=== PATIENT | male | born 1975 | race Caucasian/White ===

== ENCOUNTER 2021-02-23 00:50 | Day surgery (SDC) | payer OTHER, SELFPAY ==
[2021-02-12 14:10] VITALS: BMI 35.1
[2021-02-23 06:42] VITALS: BP 143/86; PULSE 77; RESP 16; TEMP 36; O2SAT 99; BMI 33.3
[2021-02-23] MEDS: LACTATED RINGERS 1,000 ML 150 ML IV CONT (07:02)
[2021-02-23 07:05] LABS: Glucose Point of Care 163 mg/dl (65-105)
--- NOTE | 2021-02-23 08:07 | P.PNAN_ITS ---
Anes - Initial Pre Proc Eval Procedure: Operation Date: 02/23/21 08:00 Proposed Procedures p Screening Colonoscopy - Danial Salazar MD Date/Time: 02/23/21 08:07 Surgeon: Danial Salazar MD Pre Op Diagnosis: neoplasm screening Patient Data Age: 46 Gender: M Height: 1.78 m Weight: 105.3 kg Last Vital Signs Temp 96.8 F L 02/23/21 06:42 Pulse 77 02/23/21 06:42 Resp 16 02/23/21 06:42 BP 143/86 H 02/23/21 06:42 Pulse Ox 99 02/23/21 06:42 Allergies Allergy/AdvReac Type Severity Reaction Status Date / Time No Known Allergies Allergy Verified 02/23/21 06:49 Home Medications Medication Instructions Recorded Confirmed Type Breo Ellipta 1 puff INHALATION DAILY 02/12/21 02/23/21 History atorvastatin 20 mg PO DAILY 02/12/21 02/23/21 History escitalopram oxalate 10 mg PO DAILY 02/12/21 02/23/21 History gabapentin 300 mg PO TID 02/12/21 02/23/21 History loratadine 10 mg PO DAILY 02/12/21 02/23/21 History metformin 1,000 mg PO BID 02/12/21 02/23/21 History needle (disp) 18 G [BD Regular 02/12/21 02/23/21 History [facility] [place]] Laboratory Tests 02/23/21 06:55 POC Capillary Glucose 163 mg/dl H mg/dl (65-105) Patient hx anesthesia problems: none Family hx anesthesia problems: none Results Review: All pre-operative results and documents have been reviewed as part of the pre-operative evaluation. [facility] Past Medical History Medical History (Updated 02/23/21 @ 08:06 by Epifanio Holley MD) Asthma Diabetes Hyperlipidemia Hypertension Social History Social History Smoking packs per day: 1.5 Smoking cigarettes per day: 30.0 Years smoked: 30 Smoking pack-years: 45.00 Smoking status: Current every day smoker Tobacco type: cigarettes Alcohol intake: current Alcohol use details: very rarely Substance use: never Substance use type: does not use Living arrangements: with family Anes - Eval Final PreProcedure Day of Procedure 02/23/21 08:07 Patient weight: obese Heart: regular rate and rhythm Lungs: clear to auscultation Airway: Mallampati scale class III Neurological: alert and oriented Last oral intake: >/= 8 hours ASA classification: III Emergent: no Anesthetic plan: proceed Anesthesia type and monitoring: general GIVS and standard monitoring Results Review: All pre-operative results and documents have been reviewed as part of the pre-operative evaluation. Informed Consent: The patient's anesthetic plan and its attendant risks and benefits were discussed with the patient/family/POA. Questions were solicited and answers provided to the satisfaction of the patient/family/POA.
--- NOTE | 2021-02-23 08:08 | PM.HPGS ---
History of Present Illness History of Present Illness Consent: Risks, benefits, and alternatives have been discussed and questions answered. Patient agrees to proceed with procedure. Chief complaint: neoplasm screening Narrative: Alex Bajwa is a 46 year old male here for first screening colonoscopy Review of Systems Constitutional: Constitutional: Denies headache(s) and Denies weakness Eyes: Eyes: Denies blurry vision ENT: Reports Normal hearing present, Denies headache(s) and Denies neck pain Cardiovascular: Cardiovascular: Denies chest pain and Denies dyspnea Respiratory: Respiratory: Denies dyspnea Gastrointestinal: Gastrointestinal: Reports no additional gastrointestinal complaints Genitourinary: Genitourinary: Denies dysuria Musculoskeletal: Musculoskeletal: Denies neck pain Integumentary/Breasts: Skin/Breast: Denies dry skin Neurologic: Reports Normal hearing present, Denies headache(s) and Denies weakness Psychiatric: Psychiatric: Denies anxiety Endocrine: Endocrine: Denies change in body appearance Hematologic/Lymphatic: Hematologic/Lymphatic: Denies easy bleeding Allergic/Immunologic: Allergic/Immunologic: Denies urticaria PMFSH Past Medical History Medical History (Updated 02/23/21 @ 08:08 by Danial Salazar MD) Asthma Colon cancer screening Diabetes Hyperlipidemia Hypertension Social History Social History Smoking packs per day: 1.5 Smoking cigarettes per day: 30.0 Years smoked: 30 Smoking pack-years: 45.00 Smoking status: Current every day smoker Tobacco type: cigarettes Alcohol intake: current Alcohol use details: very rarely Substance use: never Substance use type: does not use Living arrangements: with family Meds Home Medications and Allergies Home Medications Medication Instructions Recorded Confirmed Type Breo Ellipta 1 puff INHALATION DAILY 02/12/21 02/23/21 History atorvastatin 20 mg PO DAILY 02/12/21 02/23/21 History escitalopram oxalate 10 mg PO DAILY 02/12/21 02/23/21 History gabapentin 300 mg PO TID 02/12/21 02/23/21 History loratadine 10 mg PO DAILY 02/12/21 02/23/21 History metformin 1,000 mg PO BID 02/12/21 02/23/21 History needle (disp) 18 G [BD Regular 02/12/21 02/23/21 History [facility] [place]] Allergies Allergy/AdvReac Type Severity Reaction Status Date / Time No Known Allergies Allergy Verified 02/23/21 06:49 Vital Signs Vital Signs - 24 hr 02/23/21 06:42 Temperature 96.8 F L Pulse Rate 77 Respiratory Rate 16 Blood Pressure 143/86 H Pulse Oximetry 99 Exam Const: General: comfortable and no acute distress HENMT: General nose exam: Normal nares present Eyes: General: appearance normal, both eyes and all related structures Neck: Neck: no JVD Resp: Auscultation: clear to auscultation bilaterally Cardio: Rate: regular rate Rhythm: regular rhythm GI: Inspection: non-distended GI Palp: Yes Soft to palpation Skin: General skin exam: normal color Neuro: General: gait normal Speech: normal speech Extrem: General: normal to inspection Psych: Mental Status: mental status grossly normal Assessment and Plan Assessment and plan (1) Colon cancer screening: Code(s): Z12.11 - Encounter for screening for malignant neoplasm of colon Status: Acute Assessment and Plan: colonoscopy
[2021-02-23 08:25] VITALS: BP 127/77; PULSE 77; RESP 16; O2SAT 95
[2021-02-23 08:35] VITALS: BP 129/79; PULSE 72; RESP 18; O2SAT 98
[2021-02-23 08:45] VITALS: BP 129/83; PULSE 73; RESP 18; O2SAT 98
== END 2021-02-23 08:56 | disposition home or self-care (01) ==
PROVIDERS: PCP Nurse Practitioner; Visit Provider Internal Medicine Gastroenterology
PROC: 0DJD8ZZ Inspection of Lower Intestinal Tract, Via Natural or Artificial Opening Endoscopic (ICD-10-PCS; CPT 45378; principal; 2021-02-23 08:00)
DX: Z12.11 Encounter for screening for malignant neoplasm of colon (principal); K64.8 Other hemorrhoids; J45.909 Unspecified asthma, uncomplicated; E11.9 Type 2 diabetes mellitus without complications; I10 Essential (primary) hypertension; E78.5 Hyperlipidemia, unspecified; F17.210 Nicotine dependence, cigarettes, uncomplicated; Z79.84 Long term (current) use of oral hypoglycemic drugs; E66.9 Obesity, unspecified; Z68.33 Body mass index [BMI] 33.0-33.9, adult
CPT/HCPCS: 45378; 82948; J2704; J7120

== ENCOUNTER 2021-09-28 06:35 | Outpatient (CLI) | payer OTHER, SELFPAY ==
--- NOTE | ~2021-09-28 | MR_ITS ---
EXAMINATION: MR cervical spine wo con DATE: 09/28/2021 08:02 INDICATION: Cervical radiculopathy. TECHNIQUE: Magnetic resonance imaging (MRI) of the cervical spine was performed without intravenous c ontrast. Sequences included sagittal T2-weighted FSE, sagittal T2-weighted FS FSE, sagittal T1-weight ed FSE, axial MERGE, and axial T2-weighted FSE. COMPARISON: None FINDINGS: There is hypolordosis of cervical spine. Vertebral body heights are normal. There is severe ly decreased disc height at C5-C6 and moderately decreased disc height at C6-C7 with endplate remodel ing. The spinal cord signal intensity is normal. The following disc levels are specifically discussed : C2-C3: The disc does not extend beyond the endplate margin. There is no uncovertebral joint osteoarth ritis. There is no facet joint osteoarthritis. There is no neural foraminal stenosis. There is no lanny tral canal stenosis. C3-C4: There is a central extrusion. There is no uncovertebral joint osteoarthritis. There is mild la teral facet joint osteoarthritis. There is no neural foraminal stenosis. There is no central canal st enosis. C4-C5: The disc does not extend beyond the endplate margin. There is no uncovertebral joint osteoarth ritis. There is mild bilateral facet joint osteoarthritis. There is no neural foraminal stenosis. The re is no central canal stenosis. C5-C6: The disc is bulging. There is severe bilateral uncovertebral joint osteoarthritis. There is mi ld bilateral facet joint osteoarthritis. There is moderate bilateral neural foraminal stenosis. There is mild central canal stenosis with ventral indentation of the spinal cord. C6-C7: The disc is bulging. There is mild right and moderate left uncovertebral joint osteoarthritis. There is mild bilateral facet joint osteoarthritis. There is mild right and moderate left neural for aminal stenosis. There is mild central canal stenosis with ventral indentation of the spinal cord. C7-T1: The disc does not extend beyond the endplate margin. There is no uncovertebral joint osteoarth ritis. There is mild bilateral facet joint osteoarthritis. There is no neural foraminal stenosis. The re is no central canal stenosis. IMPRESSION: 1. Severe cervical spondylosis. Reviewed, dictated and finalized at location A.
--- NOTE | ~2021-09-28 | MR_ITS ---
EXAMINATION: MR lumbar spine wo con DATE: 09/28/2021 08:02 INDICATION: Low back pain. Lumbar radiculopathy. TECHNIQUE: Magnetic resonance imaging (MRI) of the lumbar spine was performed without intravenous con trast. Sequences included sagittal T2-weighted FSE, sagittal T2-weighted FS FSE, sagittal T1-weighted FSE, and axial T2-weighted FSE. COMPARISON: None FINDINGS: Bone alignment is normal. Vertebral body heights and intervertebral disc heights are normal . Epidural lipomatosis is noted. The distal spinal cord signal intensity is normal. The conus medulla ris is at L1-L2. The following disc levels are specifically discussed: L1-L2: The disc does not extend beyond the endplate margin. There is mild bilateral facet joint osteo arthritis. There is no neural foraminal stenosis. There is no central canal stenosis. L2-L3: The disc does not extend beyond the endplate margin. There is mild bilateral facet joint osteo arthritis. There is no neural foraminal stenosis. There is no central canal stenosis. L3-L4: There is a left foraminal protrusion. There is mild left facet joint osteoarthritis. There is mild left neural foraminal stenosis. There is no central canal stenosis. L4-L5: The disc is mildly bulging. There is moderate bilateral facet joint osteoarthritis. There is m ild bilateral neural foraminal stenosis. There is no central canal stenosis. L5-S1: The disc does not extend beyond the endplate margin. There is moderate bilateral facet joint o steoarthritis. There is no neural foraminal stenosis. There is no central canal stenosis. IMPRESSION: 1. Mild lumbar spondylosis. Reviewed, dictated and finalized at location A. IMPRESSION: 1. Mild lumbar spondylosis.
== END 2021-09-28 06:36 | disposition home or self-care (01) ==
LOC: ANHIMG 06:42
PROVIDERS: PCP Nurse Practitioner; Visit Provider Nurse Practitioner Family
DX: M47.22 Other spondylosis with radiculopathy, cervical region (principal); M47.26 Other spondylosis with radiculopathy, lumbar region
CPT/HCPCS: 72141; 72148

== ENCOUNTER 2022-03-23 12:44 | Emergency (ER) | payer OTHER, SELFPAY ==
[2022-03-23 12:55] VITALS: BP 137/85; PULSE 83; RESP 16; TEMP 37; O2SAT 99
--- NOTE | 2022-03-23 13:28 | ED.URI ---
HPI - URI/Sore Throat General Chief Complaint: Upper Respiratory Infection Stated Complaint: sore throat Time Seen by Provider: 03/23/22 13:30 Source: patient and RN notes reviewed Mode of arrival: ambulatory Limitations: no limitations History of Present Illness HPI Narrative: 47 year old male presents congestion, ear pain, sinus pain swelling of lymph nodes. Reports symptoms started Monday. He reports history of asthma, however he does not have an inhaler. He reports he has been using Tylenol and sinus medication without relief MD elicited complaint: other (Ear pain, cough) Related Data Home Medications Medication Instructions Recorded Confirmed atorvastatin 20 mg tablet 20 mg PO DAILY 02/12/21 03/23/22 escitalopram oxalate 10 mg tablet 10 mg PO DAILY 02/12/21 03/23/22 gabapentin 300 mg PO TID 02/12/21 03/23/22 loratadine 10 mg tablet 10 mg PO DAILY 02/12/21 03/23/22 metformin 1,000 mg tablet 1,000 mg PO BID 02/12/21 03/23/22 dapagliflozin 5 mg tablet (Farxiga) 5 mg PO DAILY 03/23/22 03/23/22 Allergies Allergy/AdvReac Type Severity Reaction Status Date / Time No Known Allergies Allergy Verified 03/23/22 13:04 Review of Systems Review of Systems: CONSTITUTIONAL: Denies malaise, chills, sweats, or fever. EYES: Denies visual changes, redness, or discharge. ENT: Reports rhinorrhea, congestion, sinus pain, otalgia and sore throat. CARDIOVASCULAR: Denies chest pain, palpitations, or edema. RESPIRATORY: Reports cough. Denies dyspnea. GASTROINTESTINAL: Denies abdominal pain, nausea, vomiting, diarrhea SKIN: Denies rash or itching. MUSCULOSKELETAL: Denies myalgia. NEUROLOGIC: Denies headache. All systems reviewed & are unremarkable except as noted in HPI and below [facility] Past Medical History Medical History (Updated 03/23/22 @ 13:36 by Flora Magallanes NP) Asthma Colon cancer screening Diabetes Hyperlipidemia Hypertension Social History Social History Smoking packs per day: 1.5 Smoking cigarettes per day: 30.0 Years smoked: 30 Smoking pack-years: 45.00 Smoking status: Current every day smoker Tobacco type: cigarettes Alcohol intake: current Alcohol use details: very rarely Substance use: never Substance use type: does not use Comments At time of signature, agree with nursing past medical, surgical, social and family history. There is no relevant family history pertinent to the presenting complaint Exam Narrative: GENERAL: Well-appearing, well-nourished, and in no acute distress. HEAD: Normocephalic EYES: PERRLA, conjunctivae clear ENT: Nares clear, turbinates edematous and erythematous. Mucous membranes moist. TM erythematous and bulging bilaterally; no tragal tenderness. Oropharynx not erythematous without lesions. Tonsils not enlarged and without exudate, no drooling, no hoarseness, no trismus, uvula midline. NECK: Supple. Bilateral cervical lymphadenopathy CHEST: Clear to auscultation, breath sounds equal. No wheezing, rhonchi, rales, or stridor. No respiratory distress, speaks in full sentences. HEART: Regular rate and rhythm. No murmur heard. SKIN: Warm, dry, no rash. NEURO: Alert and oriented x3. PSYCH: Normal mood and affect Course Course Emergency Course: Patient is aware of diagnosis, understands and agrees to treatment plan. Anticipatory guidance given. Patient agrees to follow-up as directed and is aware of reasons to seek care at the emergency department. Portions of this record may have been created with voice recognition software Level of Care: Express Care Visit Vital Signs Vital signs: Vital Signs Temperature 98.6 F 03/23/22 12:55 Pulse Rate 83 03/23/22 12:55 Respiratory Rate 16 03/23/22 12:55 Blood Pressure 137/85 03/23/22 12:55 Pulse Oximetry 99 03/23/22 12:55 Oxygen Delivery Room Air 03/23/22 12:55 Temperature 98.6 F 03/23/22 12:55 Pulse Rate 83 03/23/22 12:55 Respiratory Rate 16 03/23/22 12:55 Blood Pressure 137/85
== END 2022-03-23 13:40 | disposition home or self-care (01) ==
PROVIDERS: Emergency Provider Nurse Practitioner; PCP Internal Medicine
DX: R06.2 Wheezing (principal); H66.003 Acute suppurative otitis media without spontaneous rupture of ear drum, bilateral; F17.210 Nicotine dependence, cigarettes, uncomplicated; J45.909 Unspecified asthma, uncomplicated; E11.9 Type 2 diabetes mellitus without complications; E78.5 Hyperlipidemia, unspecified; I10 Essential (primary) hypertension
CPT/HCPCS: 99213; G0463

== ENCOUNTER 2022-08-16 07:17 | Outpatient (CLI) | payer OTHER, SELFPAY ==
[2022-08-16 07:48] LABS: Appearance Urine Clear (Clear); Bacteria Urine None Seen /hpf; Bilirubin Urine Negative (Negative); Blood Urine Negative (Negative); Color Urine Yellow (Yellow); Glucose Urine UA 3+ mg/dL (Negative); Ketones Urine Trace mg/dL (Negative); Leukocyte Esterase Ur Negative LEU/UL (Negative); Nitrate Urine Negative (Negative); Non Pathogenic Casts 0-2; Protein Urine 1+ mg/dL (Negative); RBC Urine 0-2 /hpf (0-2); Specific Grav Ur 1.026 (1.001-1.035); Squamous Epithelial Cell Urine None seen /hpf (Few); Urobilinogen Urine 0.2 mg/dL (<2.0); WBC Urine 0-5 /hpf; pH Urine 5.5 (5.0-9.0)
[2022-08-16 07:54] LABS: Alanine Aminotransferase 39 U/L (6-50); Albumin Level 4.9 g/dL (3.5-5.1); Alkaline Phosphatase 66 U/L (38-126); Anion Gap 7 mmol/L (8-16); Aspartate Amino Transferase 20 U/L (17-59); Bilirubin,Total 0.5 mg/dL (0.2-1.3); Blood Urea Nitrogen 18 mg/dL (9-20); Calcium 9.4 mg/dL (8.4-10.2); Carbon Dioxide 28 mmol/L (22-30); Chloride 101 mmol/L (98-107); Cholesterol 180 mg/dL (0-200); Estimated Glomerular Filt Rate > 60; Glucose 164 mg/dL (65-110); HDL Direct 27 mg/dL; Phosphorus 3.9 mg/dL (2.5-4.5); Potassium 4.4 mmol/L (3.4-5.0); Sodium 136 mmol/L (137-145); Triglycerides 216 mg/dL (<150)
[2022-08-16 07:59] LABS: Hemoglobin A1C 7.4 % (<5.7)
[2022-08-16 08:00] LABS: Add Urine Microscopic? YES
[2022-08-16 08:02] LABS: Basophils Absolute Auto 0.1 K/mm3 (0.0-0.1); Basophils Percent Auto 0.7 % (0.2-1.2); Eosinophils Absolute Auto 0.1 K/mm3 (0-0.3); Eosinophils Percent Auto 1.1 % (0-4.4); Hematocrit 52.8 % (42.0-52.0); Hemoglobin 17.9 g/dL (14.0-18.0); Immature Granulocyte Absolute 0.06 K/mm3 (0.00-0.031); Immature Granulocyte Percent A 0.5 % (0-0.5); Lymphocytes Absolute Auto 3.41 K/mm3 (0.9-3.2); Lymphocytes Percent Auto 31.1 % (18.3-44.2); Mean Corpuscular HGB Conc 33.9 g/dl (32-36); Mean Corpuscular Hemoglobin 31.4 pg (26-34); Mean Corpuscular Volume 92.6 fl (80-100); Mean Platelet Volume 8.3 fl (7.4-10.4); Monocytes Absolute Auto 0.9 K/mm3 (0.1-0.6); Monocytes Percent Auto 8.4 % (2.6-8.5); Neutrophils Absolute Auto 6.4 K/mm3 (1.3-6.7); Neutrophils Percent Auto 58.2 % (45.5-73.1); Platelet Count Result 253 k/mm3 (150-375); Red Cell Distribution Width 12.9 % (11.5-14.5)
[2022-08-16 08:05] LABS: LDL Cholesterol Direct 118 mg/dL
[2022-08-16 08:22] LABS: Free T4 Free Thyroxine 0.88 ng/mL (0.78-2.19); Vitamin D 25 Hydroxy 40.4 ng/mL
[2022-08-16 08:23] LABS: Prostate Specific Antigen 0.5 ng/mL (< OR = 4.0)
[2022-08-16 08:24] LABS: Creatinine Urine 79.3 mg/dL
[2022-08-16 08:29] LABS: MALB Creatinine Ratio 157.4 mg/g (0-30); Microalbumin Urine Random 124.8 mg/L (0-16.7)
[2022-08-20 12:07] LABS: Testosterone Total 152 ng/dL (250-1100)
== END 2022-08-16 07:18 | disposition home or self-care (01) ==
LOC: ANHLAB 07:19
PROVIDERS: PCP Internal Medicine; Visit Provider Nurse Practitioner
DX: M54.59 Other low back pain (principal); M54.16 Radiculopathy, lumbar region; E55.9 Vitamin D deficiency, unspecified; E11.9 Type 2 diabetes mellitus without complications; F33.1 Major depressive disorder, recurrent, moderate; M72.2 Plantar fascial fibromatosis; F17.200 Nicotine dependence, unspecified, uncomplicated; E78.2 Mixed hyperlipidemia; L40.9 Psoriasis, unspecified; M79.10 Myalgia, unspecified site
CPT/HCPCS: 36415; 80053; 80061; 81001; 82043; 82306; 83036; 84100; 84153; 84403; 84439; 84443; 85025

== ENCOUNTER 2022-10-31 08:53 | Emergency (ER) | payer OTHER, SELFPAY ==
[2022-10-31 09:08] VITALS: BP 130/74; PULSE 74; RESP 16; TEMP 36.2; O2SAT 98
--- NOTE | 2022-10-31 09:27 | ED.EAR ---
HPI - Ear Problem General Chief complaint: Ear Stated complaint: Ear pain both ears Time Seen by Provider: 10/31/22 09:27 Source: patient Mode of arrival: ambulatory Limitations: no limitations History of Present Illness HPI Narrative: 47-year-old male presented for complaints of bilateral ear pain and postnasal drainage over the past few days. Endorses a history of ear infections and ear surgeries. Denies tinnitus or ear drainage, n/v/d/f/c. Taking ibuprofen without relief. Denies sick contacts. MD Complaint: ear pain Related Data Home Medications Medication Instructions Recorded Confirmed atorvastatin 20 mg tablet 20 mg PO DAILY 02/12/21 10/31/22 escitalopram oxalate 10 mg tablet 10 mg PO DAILY 02/12/21 10/31/22 gabapentin 300 mg PO TID 02/12/21 10/31/22 loratadine 10 mg tablet 10 mg PO DAILY 02/12/21 10/31/22 metformin 1,000 mg tablet 1,000 mg PO BID 02/12/21 10/31/22 dapagliflozin propanediol 5 mg 5 mg PO DAILY 03/23/22 10/31/22 tablet (Farxiga) Allergies Allergy/AdvReac Type Severity Reaction Status Date / Time No Known Allergies Allergy Verified 03/23/22 13:04 Review of Systems Review of Systems: CONSTITUTIONAL: Denies malaise, chills, or fever. EYES: Denies visual changes, redness, or discharge. ENT: Denies sinus pain, and sore throat. Reports ear pain, rhinorrhea, congestion CARDIOVASCULAR: Denies chest pain, palpitations, or edema. RESPIRATORY: Denies wheezing or dyspnea. GASTROINTESTINAL: Denies abdominal pain, nausea, vomiting, diarrhea SKIN: Denies rash or itching. MUSCULOSKELETAL: Denies myalgia. NEUROLOGIC: Denies headache. All systems reviewed & are unremarkable except as noted in HPI and below PMFSH Past Medical History Medical History (Updated 10/31/22 @ 09:38 by Marita Soria APRN) Asthma Colon cancer screening Diabetes Hyperlipidemia Hypertension Surgical History Surgical History (Updated 10/31/22 @ 09:38 by Marita Soria APRN) History of ear surgery Hx of tonsillectomy Social History Social History Smoking packs per day: 1.5 Smoking cigarettes per day: 30.0 Years smoked: 30 Smoking pack-years: 45.00 Smoking status: Current every day smoker Tobacco type: cigarettes Alcohol intake: current Alcohol use details: very rarely Substance use: never Substance use type: does not use Living arrangements: with family Comments At time of signature, agree with nursing past medical, surgical, social and family history. There is no relevant family history pertinent to the presenting complaint Exam Narrative: GENERAL: Well-appearing, well-nourished, and in no acute distress. HEAD: Normocephalic EYES: PERRLA, conjunctivae clear ENT: Nares clear. Mucous membranes moist. Right TM pearly garcia with dull light reflex and excess cerumen; left TM erythematous and bulging with purulent effusion; no tragal tenderness. Oropharynx not erythematous without lesions. Tonsils not enlarged and without exudate, no drooling, no hoarseness, no trismus, uvula midline. NECK: Supple. No lymphadenopathy CHEST: Clear to auscultation, breath sounds equal. No wheezing, rhonchi, rales, or stridor. No respiratory distress, speaks in full sentences. HEART: Regular rate and rhythm. No murmur heard. SKIN: Warm, dry, no rash. NEURO: Alert and oriented x3. PSYCH: Normal mood and affect Course Course Emergency Course: Patient is aware of diagnosis, understands and agrees to treatment plan. Anticipatory guidance given. Patient agrees to follow-up as directed and is aware of reasons to seek care at the emergency department. Portions of this record may have been created with voice recognition software Level of Care: Express Care Visit Vital Signs Vital signs: Vital Signs Temperature 97.2 F L 10/31/22 09:08 Pulse Rate 74 10/31/22 09:08 Respiratory Rate 16 10/31/22 09:08 Blood Pressure 130/74 10/31/22 0
== END 2022-10-31 09:36 | disposition home or self-care (01) ==
PROVIDERS: Emergency Provider Nurse Practitioner Family; PCP Internal Medicine
DX: H66.002 Acute suppurative otitis media without spontaneous rupture of ear drum, left ear (principal); F17.210 Nicotine dependence, cigarettes, uncomplicated; J45.909 Unspecified asthma, uncomplicated; E11.9 Type 2 diabetes mellitus without complications; Z79.84 Long term (current) use of oral hypoglycemic drugs; E78.5 Hyperlipidemia, unspecified; I10 Essential (primary) hypertension
CPT/HCPCS: 99213; G0463

== ENCOUNTER 2024-01-22 08:13 | Emergency (ER) | payer OTHER, SELFPAY ==
--- NOTE | 2024-01-22 08:20 | ED.GENADULT ---
HPI - General Adult General Chief complaint: Ear Stated complaint: left side face hurts,left ear pain Time Seen by Provider: 01/22/24 08:25 Source: patient, RN notes reviewed and old records reviewed Mode of arrival: ambulatory Limitations: no limitations History of Present Illness HPI narrative: 48-year-old male presents to the [facility] with complaints of left-sided facial discomfort and left ear pain. Patient states symptoms have been going on for approximately 7-10 days. Has tried [id number] products. Has a history of ear infections, sinusitis. Patient is currently a smoker. Has been using his albuterol inhaler twice a day. Patient also reports cough and congestion. Denies fever Related Data Home Medications Medication Instructions Recorded Confirmed atorvastatin 20 mg tablet 20 mg PO DAILY 02/12/21 01/22/24 escitalopram oxalate 10 mg tablet 10 mg PO DAILY 02/12/21 01/22/24 gabapentin 300 mg PO TID 02/12/21 01/22/24 loratadine 10 mg tablet 10 mg PO DAILY 02/12/21 01/22/24 metformin 1,000 mg tablet 1,000 mg PO BID 02/12/21 01/22/24 dapagliflozin propanediol 5 mg 5 mg PO DAILY 03/23/22 01/22/24 tablet (Farxiga) montelukast 10 mg tablet 10 mg PO DAILY 01/22/24 01/22/24 Allergies Allergy/AdvReac Type Severity Reaction Status Date / Time No Known Allergies Allergy Verified 01/22/24 08:32 Review of Systems Review of Systems: All systems reviewed & are unremarkable except as noted in HPI and below Constitutional: Constitutional: Reports no additional constitutional complaints Eyes: Eyes: Reports no additional eye complaints ENT: Reports as per HPI Cardiovascular: Cardiovascular: Reports no additional cardiovascular complaints, Denies chest pain and Denies dyspnea Respiratory: Respiratory: Reports as per HPI, Reports chest congestion, Reports cough and Denies dyspnea Gastrointestinal: Gastrointestinal: Reports no additional gastrointestinal complaints, Denies abdominal pain, Denies nausea and Denies vomiting Musculoskeletal: Musculoskeletal: Reports no additional musculoskeletal complaints Integumentary/Breasts: Skin/Breast: Reports system reviewed and no additional complaints, except as docu Neurologic: Reports system reviewed and no additional complaints, except as documented Psychiatric: Psychiatric: Reports no additional psychiatric complaints Allergic/Immunologic: Allergic/Immunologic: Reports no additional allergic/immunologic complaints PMFSH Past Medical History Medical History Asthma Colon cancer screening Diabetes Hyperlipidemia Hypertension Surgical History Surgical History History of ear surgery Hx of tonsillectomy Social History Social History (Updated 01/22/24 @ 09:19 by Flora Chowdhury APRN) Smoking packs per day: 1 Smoking cigarettes per day: 20.0 Years smoked: 30 Smoking pack-years: 30.00 Smoking status: Current every day smoker Tobacco type: cigarettes Alcohol intake: current Alcohol use details: very rarely Substance use: never Substance use type: does not use Living arrangements: with family Comments At the time of my signature, I reviewed and agree with the nursing past medical, surgical, social, and family history. There is no relevant family history pertinent to the patient complaint. Exam Const: General: cooperative, healthy appearing, comfortable, no acute distress, well developed, alert and well nourished Nutritional Appearance: well nourished Orientation/consciousness: patient oriented x3 Limitations: no limitations HENMT: Head: normal to inspection Ears: hearing grossly normal bilaterally, external ears normal, EAC's normal, mastoids normal, no periauricular adenopathy and TM abnormal bulging on the left, erythematous on the left and with fluid behind the TM on the right Face/Nose/Sinus: Normal external nose present,
[2024-01-22 08:26] VITALS: BP 151/98; PULSE 88; RESP 16; TEMP 36.5; O2SAT 98
== END 2024-01-22 08:40 | disposition home or self-care (01) ==
PROVIDERS: Emergency Provider Nurse Practitioner
DX: H66.92 Otitis media, unspecified, left ear (principal); J01.90 Acute sinusitis, unspecified; J45.909 Unspecified asthma, uncomplicated; F17.210 Nicotine dependence, cigarettes, uncomplicated; E11.9 Type 2 diabetes mellitus without complications; E78.5 Hyperlipidemia, unspecified; I10 Essential (primary) hypertension
CPT/HCPCS: 99213; G0463